=== PATIENT | male | born 2000 | race Caucasian/White ===

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

== ENCOUNTER → 2020-06-18 | Outpatient (CLI) | payer OTHER ==
[~2020-06-18] MED LIST: Motrin,Rufen800 MG PO
== END | disposition home or self-care (01) ==
LOC: RAD 15:40
PROVIDERS: ATTEND Family Medicine
DX: S69.92XA Unspecified injury of left wrist, hand and finger(s), initial encounter (principal); X58.XXXA Exposure to other specified factors, initial encounter; Y93.89 Activity, other specified; Y92.89 Other specified places as the place of occurrence of the external cause; Y99.8 Other external cause status

== ENCOUNTER 2021-01-01 21:51 | Emergency (ER) | payer OTHER ==
[~2021-01-01] VITALS: Ht 177.8 cm; Wt 63.5 kg
[2021-01-01] MEDS ORDERED: ZYRTEC10 M3 PO (22:07)
== END 2021-01-01 23:36 | disposition home or self-care (01) ==
LOC: ED 21:51
DX: S06.0X0A Concussion without loss of consciousness, initial encounter (principal); Z88.2 Allergy status to sulfonamides; Z88.1 Allergy status to other antibiotic agents; Z79.899 Other long term (current) drug therapy; W18.39XA Other fall on same level, initial encounter; Y93.89 Activity, other specified; Y92.89 Other specified places as the place of occurrence of the external cause; Y99.8 Other external cause status

== ENCOUNTER 2021-02-10 07:19 | Emergency (ER) | payer OTHER ==
[~2021-02-10 07:19] MED LIST changes: +ZYRTEC10 M3 PO
== END 2021-02-10 08:00 | disposition home or self-care (01) ==
LOC: ED 07:19
DX: J02.9 Acute pharyngitis, unspecified (principal); Z20.822 Contact with and (suspected) exposure to COVID-19; Z88.1 Allergy status to other antibiotic agents; Z79.899 Other long term (current) drug therapy

== ENCOUNTER 2021-04-01 12:47 | Emergency (ER) | payer OTHER ==
[~2021-04-01] VITALS: Ht 177.8 cm; Wt 63.5 kg
== END 2021-04-01 14:18 | disposition home or self-care (01) ==
LOC: ED 12:47
DX: U07.1 COVID-19 (principal); Z88.1 Allergy status to other antibiotic agents; Z79.899 Other long term (current) drug therapy